=== PATIENT | male | born 1935 | race Caucasian/White ===

== ENCOUNTER 2022-08-04 23:02 | Emergency (ER) | payer MEDICARE, OTHER ==
[~2022-08-04 23:02] MED LIST: ACHYD1T PO; AMLO10TA82 PO; ASPI-9 PO; ASPI-999 PO; CARV12.5 PO; CIPR500S2 PO; FINA5TAB6 PO; GBPN300C PO; GBPN600T PO; HYDR-3920 PO; LEVO250T11 PO; LOVA40TA2 PO; MELO15TA39 PO; MTF500T PO; MULT-1029 PO; PHEN200T27 PO; PSYL660P17 PO; TAMS0.4C2 PO; TMSL.4C PO
[2022-08-04 23:18] LABS: ALBUMIN 3.2 GM/DL (3.2-4.5); BILIRUBIN,TOTAL 0.5 MG/DL (0.1-1.0); CREATININE SERUM 1.25 MG/DL (0.60-1.30); MAGNESIUM 2.1 MG/DL (1.6-2.4); POTASSIUM 4.3 MMOL/L (3.6-5.0); TOTAL PROTEIN 5.8 GM/DL (6.4-8.2); TSH (THYROID ANALYZER) 2.15 UIU/ML (0.35-4.94)
[2022-08-04 23:21] LABS: HEMOGLOBIN 4.6 g/dL (13.3-17.7); INR 1.2 (0.8-1.4); MEAN CORPUSCULAR HEMOGLOBIN 21 pg (25-34); PROTHROMBIN TIME PATIENT 15.9 SEC (12.2-14.7); WHITE BLOOD COUNT 8.5 10^3/uL (4.3-11.0)
[2022-08-04 23:22] LABS: BASOPHILS % (AUTO) 0 % (0-10); EOSINOPHILS % (AUTO) 0 % (0-10); HEMATOCRIT 17 % (40-54); LYMPHOCYTES # (AUTO) 0.8 X 10^3 (1.0-4.0); LYMPHOCYTES % (AUTO) 9 % (12-44); MEAN CORPUSCULAR HGB CONC 28 g/dL (32-36); MEAN CORPUSCULAR VOLUME 74 fL (80-99); MEAN PLATELET VOLUME 10.2 fL (9.0-12.2); MONOCYTES # (AUTO) 1.7 X 10^3 (0.0-1.0); MONOCYTES % (AUTO) 20 % (0-12); NEUTROPHILS % (AUTO) 70 % (42-75); PLATELET COUNT 344 10^3/uL (130-400)
[2022-08-04 23:23] LABS: ELLIPT/OVALOCYTES SLIGHT; LYMPHOCYTES % (MANUAL) 16 %; MONOCYTES % (MANUAL) 18 %; NEUTROPHILS % (MANUAL) 66 %; POLYCHROMASIA MODERATE; TARGET CELLS SLIGHT
[2022-08-04 23:24] LABS: HELMET/BITE CELLS SLIGHT; ROULEAUX MARKED
[2022-08-04] MEDS ORDERED: NS (IVPB) 250 ML ONE (23:37)
[2022-08-05] VITALS (15 sets, daily range): BP systolic 96–129; BP diastolic 55–96
[2022-08-05] MEDS ORDERED: LIDOCAINE UROJET 2% GEL 10 ML PKG TOP ONE (01:00)
[2022-08-05] MEDS ORDERED: fentaNYL INJ 100 MCG/2 ML AMP IVP ONE (01:15)
[2022-08-05] MEDS ORDERED: IOHEXOL 350 MG/ML 100 ML (OMNIPAQUE 350) VIAL IV ONE (01:45)
[2022-08-05] MEDS ORDERED: CATHETER FLUSH 10 ML SYR IV PRN (01:45)
[2022-08-05] MEDS ORDERED: NS 100 ML (IVPB) BAG IV ONE (01:45)
[2022-08-05 02:03] LABS: BILIRUBIN,URINE NEGATIVE (NEGATIVE); COLOR,URINE YELLOW; GLUCOSE, URINE (UA) NEGATIVE (NEGATIVE); KETONES,URINE NEGATIVE (NEGATIVE); LEUKOCYTE ESTERASE ,URINE NEGATIVE (NEGATIVE); NITRITE,URINE NEGATIVE (NEGATIVE); PROTEIN,URINE TRACE (NEGATIVE)
[2022-08-05 02:10] LABS: CLARITY,URINE SL CLOUDY
[2022-08-05 02:11] LABS: BACTERIA,URINE TRACE /HPF; HYALINE CASTS, URINE RARE /LPF; SQUAMOUS EPITHELIAL CELL,UR RARE /HPF; WBC,URINE 0-2 /HPF
--- NOTE | 2022-08-05 03:01 | ED General ---
General Chief Complaint: General Problems/Pain Stated Complaint: SOB Nursing Triage Note: PT ARRIVAL TO ER VIA [facility] FROM HOME WITH COMPLAINTS OF MALAISE X1 WEEK, BLOOD IN URINE X6 MONTHS. MALAISE SEEMS TO BE WORSENING DAILY PER PATIENT. PT DENIES PAIN OR OTHER COMPLAINTS. Source of Information: Patient, EMS, Family Exam Limitations: No Limitations History of Present Illness Date Seen by Provider: Aug 04, 2022 Time Seen by Provider: 23:04 Initial Comments This 86-year-old gentleman presents to the emergency room via EMS with primary complaint of weakness. Today he has also had shortness of breath and low heart rate. He reports hematuria for about the last 6 months for which she has not had any evaluation. He has some hesitancy in starting a urine stream. He complains of some mild generalized abdominal pain as well. He has a remote history of ureteral stones. He reports some confusion tonight. Patient is coming from home where he lives by himself. He has a brother and sister who are involved in his life and live locally. He denies any fever, cough, vomiting, diarrhea, or other acute symptoms. Heart rate for EMS was in the 80s. Blood pressure was normal. Patient appears generally quite ill and fatigued on arrival. He is noted to have an irregular heart rhythm intermittently with sinus rhythm. The abnormal rhythm appears to be a heart block and or atrial fibrillation. Allergies and Home Medications Allergies Coded Allergies: No Known Drug Allergies (Unverified , 05/15/13) Patient Home Medication List Home Medication List Reviewed: Yes Amlodipine Besylate (Norvasc Tablet) 10 Mg Tablet, 1 EACH PO DAILY, (Reported) Entered as Reported by: ESE BLACK on 05/15/13 1017 Carvedilol (Coreg Tablet) 12.5 Mg Tablet, 12.5 MG PO DAILY, (Reported) Entered as Reported by: ESE BLACK on 05/15/13 1017 Gabapentin (Gabapentin) 600 Mg Tablet, 600 MG PO Q8H, (Reported) Entered as Reported by: PALOMA LÓPEZ on 11/25/15 1331 Hydrocodone Bit/Acetaminophen (HYDROcodone/APAP 10/325 TABLET) 1 Each Tablet, 1 EACH PO BID, (Reported) Entered as Reported by: PALOMA LÓPEZ on 11/25/15 1331 Hydrocodone/Acetaminophen (Lorcet Hd 10-325 mg Tablet) 1 Each Tablet, 1-2 TAB PO Q4H PRN for PAIN Prescribed by: YU PAYAN on 12/03/15904 Levofloxacin (Levaquin) 250 Mg Tablet, 250 MG PO DAILY Prescribed by: YU PAYAN on 12/03/15904 Lovastatin (Lovastatin 40 Mg) 40 Mg Tablet, 40 MG PO DAILY, (Reported) Entered as Reported by: ESE BLACK on 05/15/13 1017 Meloxicam (Meloxicam) 15 Mg Tablet, 15 MG PO DAILY, (Reported) Entered as Reported by: PALOMA LÓPEZ on 11/25/15 133 Metformin Hcl (Metformin 500 Mg) 500 Mg Tablet, 1 EACH PO DAILY, (Reported) Entered as Reported by: ESE BLACK on 05/15/13 1017 Psyllium Husk (Metamucil) 660 Gm Powder, 660 GM PO DAILY, (Reported) Entered as Reported by: PALOMA LÓPEZ on 11/25/15 133 Tamsulosin HCl (Flomax) 0.4 Mg Cap, 0.4 MG PO DAILY Prescribed by: YU PAYAN on 12/03/15904 Review of Systems Review of Systems Constitutional: see HPI EENTM: no symptoms reported Respiratory: see HPI Cardiovascular: see HPI Gastrointestinal: see HPI Genitourinary: see HPI Musculoskeletal: no symptoms reported Skin: no symptoms reported Psychiatric/Neurological: Other (Confusion) Hematologic/Lymphatic: See HPI Immunological/Allergic: no symptoms reported Past Eocgcfk-Yavuhs-Yaxymk Hx Patient Social History Tobacco Use?: No Use of E-Cig and/or Vaping dev: No Substance use?: No Alcohol Use?: Yes Alcohol type: Beer, Hard Liquor Alcohol Frequency: Several times a month Pt feels they are or have been: No Immunizations Up To Date Tetanus Booster (TDap): Less than 5yrs Influenza Vaccine Up-to-Date: No; Not Current Past Medical History Surgeries: Yes Adenoidectomy, Appendectomy, Gallbladder, Prostatectomy (TURP), Renal (Lithotripsy, ureteral stent), Tonsillectomy Respiratory: Yes (Occasionally uses supplemental oxygen as needed) Cardiac: Yes High Cholesterol, Hypertension Neurological: No Reproductive Disorders: No Sexually Transmitted Disease: No HIV/AIDS: No Genitourinary: Yes Benign Prostatic Hyperpl, Prostate Problems, Kidney Stones Gastrointestinal: Yes Chronic Constipation, Polyps Musculoskeletal: Yes Degenerate Disk Disease, Arthritis, Chronic Back Pain Endocrine: Yes Diabetes, Non-Insulin dep HEENT: Yes Cataract Loss of Vision: Denies Hearing Impairment: Denies Cancer: Yes Prostate Psychosocial: No Integumentary: No Adverse Reaction/Blood Tranf: No Physical Exam Vital Signs Vital Signs - First Documented 08/04/22 23:08 Temp 36.6 Pulse 87 Resp 14 B/P (MAP) 117/107 (110) Pulse Ox 100 O2 Delivery Room Air Capillary Refill : Less Than 3 Seconds Height, Weight, BMI Height: 6'3.00" Weight: 226lbs. oz. 102.099198jc; 28.24 BMI Method: General Appearance: WD/WN, Mild Distress, Other (Generally ill-appearing) HEENT: PERRL/EOMI, Normal ENT Inspection, Pharynx Normal Neck: Normal Inspection; No JVD Respiratory: Lungs Clear, Normal Breath Sounds, No Accessory Muscle Use, No Re spiratory Distress Cardiovascular: Regular Rate, Rhythm, No Edema, No Murmur Gastrointestinal: Normal Bowel Sounds, Soft; No Distended; Tenderness (Generalized, mild) Extremity: Normal Inspection, Non Tender, Pedal Edema, Swelling Neurologic/Psychiatric: Alert, Normal Mood/Affect, Other (Generalized weakness, dulled and sometimes confused mentation) Skin: Warm/Dry, Pallor Progress/Results/Core Measures Suspected Sepsis SIRS Temperature: Pulse: 105 Respiratory Rate: 18 Laboratory Tests 08/04/22 22:14: White Blood Count 8.5 Blood Pressure 119 /75 Mean: 90 Laboratory Tests 08/04/22 22:14: Creatinine 1.25, INR Comment 1.2, Platelet Count 344, Total Bilirubin 0.5 Results/Orders Lab Results Laboratory Tests Test 08/04/22 22:14 08/05/22 01:58 Range/Units White Blood Count 8.5 4.3-11.0 10^3/uL Red Blood Count 2.24 L 4.30-5.52 10^6/uL Hemoglobin 4.6 *L 13.3-17.7 g/dL Hematocrit 17 *L 40-54 % Mean Corpuscular Volume 74 L 80-99 fL Mean Corpuscular Hemoglobin 21 L 25-34 pg Mean Corpuscular Hemoglobin Concent 28 L 32-36 g/dL Red Cell Distribution Width 22.1 H 10.0-14.5 % Platelet Count 344 130-400 10^3/uL Mean Platelet Volume 10.2 9.0-12.2 fL Immature Granulocyte % (Auto) 1 % Neutrophils (%) (Auto) 70 42-75 % Lymphocytes (%) (Auto) 9 L 12-44 % Monocytes (%) (Auto) 20 H 0-12 % Eosinophils (%) (Auto) 0 0-10 % Basophils (%) (Auto) 0 0-10 % Neutrophils # (Auto) 6.0 1.8-7.8 X 10^3 Lymphocytes # (Auto) 0.8 L 1.0-4.0 X 10^3 Monocytes # (Auto) 1.7 H 0.0-1.0 X 10^3 Eosinophils # (Auto) 0.0 0.0-0.3 10^3/uL Basophils # (Auto) 0.0 0.0-0.1 10^3/uL Immature Granulocyte # (Auto) 0.1 0.0-0.1 10^3/uL Neutrophils % (Manual) 66 % Lymphocytes % (Manual) 16 % Monocytes % (Manual) 18 % Polychromasia MODERATE Macrocytosis MODERATE Target Cells SLIGHT Helmet Cells SLIGHT Elliptocytes SLIGHT Rouleau MARKED Prothrombin Time 15.9 H 12.2-14.7 SEC INR Comment 1.2 0.8-1.4 Activated Partial Thromboplast Time 30 24-35 SEC Sodium Level 131 L 135-145 MMOL/L Potassium Level 4.3 3.6-5.0 MMOL/L Chloride Level 100 98-107 MMOL/L Carbon Dioxide Level 21 21-32 MMOL/L Anion Gap 10 5-14 MMOL/L Blood Urea Nitrogen 17 7-18 MG/DL Creatinine 1.25 0.60-1.30 MG/DL Estimat Glomerular Filtration Rate 56 BUN/Creatinine Ratio 14 Glucose Level 105 70-105 MG/DL Calcium Level 8.0 L 8.5-10.1 MG/DL Corrected Calcium 8.6 8.5-10.1 MG/DL Magnesium Level 2.1 1.6-2.4 MG/DL Total Bilirubin 0.5 0.1-1.0 MG/DL Aspartate Amino Transf (AST/SGOT) 13 5-34 U/L Alanine Aminotransferase (ALT/SGPT) 7 0-55 U/L Alkaline Phosphatase 132 40-136 U/L Total Protein 5.8 L 6.4-8.2 GM/DL Albumin 3.2 3.2-4.5 GM/DL TSH [place] Testing 2.15 0.35-4.94 UIU/ML Urine Color YELLOW Urine Clarity SL CLOUDY Urine pH 6.0 5-9 Urine Specific [place] 1.020 1.016-1.022 Urine Protein TRACE H NEGATIVE Urine Glucose (UA) NEGATIVE NEGATIVE Urine Ketones NEGATIVE NEGATIVE Urine Nitrite NEGATIVE NEGATIVE Urine Bilirubin NEGATIVE NEGATIVE Urine Urobilinogen 1.0 < = 1.0 MG/DL Urine Leukocyte Esterase NEGATIVE NEGATIVE Urine RBC (Auto) 3+ H NEGATIVE Urine RBC 10-25 H /HPF Urine WBC 0-2 /HPF Urine Squamous Epithelial Cells RARE /HPF Urine Crystals NONE /LPF Urine Bacteria TRACE /HPF Urine Casts PRESENT /LPF Urine Hyaline Casts RARE /LPF Urine Mucus SMALL H /LPF Urine Culture Indicated NO My Orders Orders - WILLEM SCHWARTZ MD Chest 1 View, Ap/Pa Only (08/04/22 ) Cbc With Automated Diff (08/04/22 22:14) Comprehensive Metabolic Panel (08/04/22 22:14) Magnesium (08/04/22 22:14) Thyroid Analyzer (08/04/22 22:14) Protime With Inr (08/04/22 22:14) Urinalysis (08/04/22 22:14) Partial Thromboplastin Time (08/04/22 22:14) Manual Differential (08/04/22 22:14) Ns (Ivpb) (Sodium Chloride 0.9%) (08/04/22 23:37) Type And Screen (08/04/22 22:38) Red Cells Leukocytes Reduced (08/04/22 23:51) Lidocaine 2% (Urojet) (Xylocaine Urojet) (08/05/22 01:00) Mayen Cath (08/05/22 00:49) Ct Abdomen/Pelvis W (08/05/22 00:49) Fecal Occult Bedside (08/05/22 00:49) Fentanyl Inj (Sublimaze Injection) (08/05/22 01:15) Iohexol Injection (Omnipaque 350 Mg/Ml 1 (08/05/22 01:45) Sodium Chloride Flush (Catheter Flush Sy (08/05/22 01:45) Ns (Ivpb) (Sodium Chloride 0.9% Ivpb Bag (08/05/22 01:45) Medications Given in ED Current Medications Medications Dose Ordered Sig/[place] Route Start Time Stop Time Status Last Admin Dose Admin Fentanyl Citrate 25 mcg ONCE ONCE IVP 08/05/22 01:15 08/05/22 01:16 DC 08/05/22 01:23 25 MCG Iohexol 100 ml ONCE ONCE IV 08/05/22 01:45 08/05/22 01:46 DC 08/05/22 01:52 80 ML Lidocaine HCl 10 ml ONCE ONCE TOP 08/05/22 01:00 08/05/22 01:01 DC 08/05/22 01:23 10 ML Sodium Chloride 10 ml NEEDED PRN IV 08/05/22 01:45 08/05/22 06:12 DC 08/05/22 01:52 10 ML Sodium Chloride 100 ml ONCE ONCE IV 08/05/22 01:45 08/05/22 01:46 DC 08/05/22 01:52 80 ML Sodium Chloride 250 ml @ STK-MED ONCE .ROUTE 08/04/22 23:37 08/04/22 23:40 DC 08/05/22 00:05 100 MLS/HR Vital Signs/I&O 08/04/22 08/04/22 08/05/22 08/05/22 23:08 23:08 00:06 00:11 Temp 36.6 36.4 36.6 Pulse 87 93 91 Resp 14 18 16 B/P (MAP) 117/107 (110) 107/57 99/65 Pulse Ox 100 98 97 O2 Delivery Room Air Room Air 08/05/22 08/05/22 08/05/22 08/05/22 00:16 00:31 00:46 01:01 Temp 36.5 36.6 36.5 36.7 Pulse 90 83 75 88 Resp 18 18 16 16 B/P (MAP) 114/65 96/57 114/60 101/55 Pulse Ox 99 98 100 97 08/05/22 08/05/22 08/05/22 08/05/22 01:22 02:12 02:17 02:22 Temp 36.5 36.5 36.6 36.6 Pulse 79 84 84 94 Resp 16 16 16 18 B/P (MAP) 112/64 119/67 120/61 107/59 Pulse Ox 99 97 99 96 08/05/22 08/05/22 08/05/22 08/05/22 02:37 02:53 03:08 03:23 Temp 36.5 36.5 36.5 36.6 Pulse 105 75 87 87 Resp 18 16 16 16 B/P (MAP) 119/75 125/70 129/96 129/96 Pulse Ox 96 97 99 97 O2 Delivery Room Air Room Air Room Air 08/05/22 05:20 Pulse 93 Resp 18 B/P (MAP) 122/78 Pulse Ox 98 O2 Delivery Room Air Capillary Refill : Less Than 3 Seconds Blood Pressure Mean: 90 Point of Care Testing Fecal Occult: Negative Progress Note : Time: 04:16 Progress Note Patient was found to have a hemoglobin of 4.6 on initial evaluation. 2 units of packed red blood cells are being transfused. To evaluate his hematuria, abdominal pain, and blood loss further, CT of the abdomen and pelvis was obtained. He was found to have a large right renal cell carcinoma measuring about 11 cm in diameter. He had associated venous clot that extended into the IVC. There are also pulmonary emboli presumably associated. I discussed these findings with the [facility] radiologist. The radiologist commented that if these are cancer thrombi, they will likely not be very responsive to anticoagulation. Given the statement along with the fact that we have a severely low hemoglobin without knowing the source of blood loss, I am not initiating anticoagulation at this time. [facility] does not have a urologist on-call at present. Patient elected to seek transfer to [facility] in [place] for further evaluation. He would like the opportunity to be evaluated by a urologist to discuss treatment options. Patient is demonstrating sinus rhythm on telemetry at this time. He has had periodic episodes of atrial fibrillation and or heart block. I had discussion about CODE STATUS with the patient and his sister Erika. He would like to have a DNR status and would like Erika to be his medical decision-maker should he be incapacitated. I discussed the case with Dr. Askew at [facility] in [place]. He accepts the case as a urology consult. I am awaiting callback from the hospitalist to get admission acceptance. ECG Initial ECG Impression Date: Aug 04, 2022 Initial ECG Impression Time: 22:35 Initial ECG Rate: 85 Comment Variable rhythm. Sinus rhythm with intermittent arrhythmia, possibly atrial fibrillation or heart block. No ST elevation or depression to suggest ischemia. No axis deviation. Diagnostic Imaging Diagonstic Imaging: Xray Plain Films/CT/US/NM/MRI: chest Comments Chest x-ray viewed by me. Radiologist report pending. No acute abnormalities appreciated. Diagonstic Imaging: CT Plain Films/CT/US/NM/MRI: abdomen, pelvis Comments CT abdomen and pelvis viewed by me. Stat rad report reviewed and discussed with the radiologist. Impression is as follows: "Large invasive renal cell carcinoma of right kidney measures 8.7 cm x 10.5 cm x 10 cm. There is hematuria and a dilated right renal pelvis. There is enhancing tumor thrombus in the right renal vein extending into the IVC. There is also evidence of pulmonary emboli in the right lower lobe which considering the cobble thrombus could be embolic tumor thrombus." Departure Impression Primary Impression: Renal cell carcinoma of right kidney Additional Impressions: Severe anemia Arrhythmia Qualified Codes: I49.9 - Cardiac arrhythmia, unspecified Renal vein thrombosis Pulmonary emboli Qualified Codes: I26.99 - Other pulmonary embolism without acute cor pulmonale Disposition: 02 XFER SHT-TRM HOSP Condition: Improved Transfer Transfer Reason: Exceeds level of care Time Spoke to Accepting Phy: 04:09 Transfer Progress Notes Transfer was excepted by Dr. Askew (urology) and Dr. Romero hospitalist. Transfer Time: 06:00 Transfer Facility: [facility] Method of Transfer: EMS Departure-Patient Inst. Referrals: JAYESH KENNEDY MD (PCP) Primary Care Physician Copy Copies To 1: JAYESH KENNEDY MD, JOSHUA T MD Aug 05, 2022 03:01
--- NOTE | 2022-08-05 06:02 | Diagnostic Imaging Report ---
INDICATION: Weakness. Comparison made with prior examination of 05/15/2013. FINDINGS: There is cardiomegaly. The lungs are otherwise clear. There is no pleural effusion or pneumothorax. The mediastinum is unremarkable. IMPRESSION: No acute cardiopulmonary abnormality Cardiomegaly Dictated by: Dictated on workstation # [id number]
--- NOTE | 2022-08-05 06:43 | Diagnostic Imaging Report ---
PROCEDURE: CT abdomen and pelvis with contrast. TECHNIQUE: Multiple contiguous axial images were obtained through the abdomen and pelvis after administration of intravenous contrast. Auto Exposure Controls were utilized during the CT exam to meet ALARA standards for radiation dose reduction. All CT scans use one or more of the following dose optimizing techniques: automated exposure control, MA and/or KvP adjustment based on patient size and exam type or iterative reconstruction. INDICATION: Hematuria. FINDINGS: There is a pulmonary embolus in the right lower lobe. There is bibasilar atelectasis and/or pneumonitis. There is cardiomegaly. The liver is normal in size. There is a large cyst in the right lobe of liver measuring up to 15 cm. There is no biliary ductal dilatation. Spleen is normal. The pancreas is unremarkable. There are cysts and nonobstructing calculi in the left kidney. There is a large mass in the right kidney extending into the right renal vein and IVC compatible with renal cell carcinoma. The aorta is nonaneurysmal. There is some atherosclerotic calcification. Bladder is normal. There is no pelvic mass, adenopathy or free fluid. There are moderately severe degenerative changes in the spine. IMPRESSION: Large invasive renal cell carcinoma in the right kidney measuring up to 8.7 x 10.5 x 10 cm. There is extension into the right renal vein and IVC. Additionally there is right pulmonary embolism possibly embolic tumor thrombus. Cardiomegaly. Large right hepatic cyst. Left renal cyst and nephrolithiasis. Degenerative changes in the spine. Dictated by: Dictated on workstation # [id number]
== END 2022-08-05 06:05 | disposition short-term general hospital (02) ==
LOC: EDUNIT# 23:02 → ER 23:04
DX: C64.1 Malignant neoplasm of right kidney, except renal pelvis (principal); D63.0 Anemia in neoplastic disease; I49.9 Cardiac arrhythmia, unspecified; I82.3 Embolism and thrombosis of renal vein; I26.99 Other pulmonary embolism without acute cor pulmonale; Z87.442 Personal history of urinary calculi; Z98.890 Other specified postprocedural states; Z96.0 Presence of urogenital implants; Z28.310 Unvaccinated for COVID-19
CPT/HCPCS: 51702; 71045; 74177; 80053; 81000; 82274; 83735; 84443; 85007; 85027; 85610; 85730; 86850; 86900; 86901; 86920; 93005; 99285; P9016 ×2; 36415